=== PATIENT | female | born 1940 | race Caucasian/White ===

== ENCOUNTER 2018-06-13 05:47 | Outpatient (CLI) | payer MEDICARE ==
[~2018-06-13] VITALS: Ht 160 cm; Wt 64.9 kg
[~2018-06-13 05:47] MED LIST: ATEN-158 PO; ATEN25TA PO; CA C1TAB53 PO; CLOB15CR3 TP; EST45C VG; FEXO30TA17 PO; FLUT16SP22 NS; GLUC1TAB29 PO; HCT25T PO; HYDR12.56 PO; PANT20TA2 PO; POTA10CA43 PO; POTA20TA15 PO; VIT1CAPS45 PO
[2018-06-13] MEDS ORDERED: METO-333 PO (11:54)
[2018-06-13] MEDS ORDERED: POTA-51 PO (11:54)
[2018-06-13] MEDS ORDERED: FEXO-46 PO (11:54)
[2018-06-13] MEDS ORDERED: CLOB15CR3 VG (11:54)
[2018-06-13] MEDS ORDERED: CARB1DRO OP (11:54)
[2018-06-13] MEDS ORDERED: MEDR2.5T6 PO (11:54)
[2018-06-13] MEDS ORDERED: EST30C VG (11:54)
[2018-06-13] MEDS ORDERED: TRET20CR TP (11:54)
[2018-06-13] MEDS ORDERED: HYDR25TA4 PO (11:54)
[2018-06-13] MEDS ORDERED: PANT40TA3 PO (11:54)
== END 2018-06-13 12:17 | disposition home or self-care (01) ==
LOC: PREOP 05:47
PROVIDERS: ATTEND Podiatrist Foot Surgery
DX: Z01.818 Encounter for other preprocedural examination (principal)

== ENCOUNTER 2018-06-19 07:17 | Day surgery (SDC) | payer MEDICARE ==
[2018-06-19] VITALS (8 sets, daily range): BP systolic 125–152; BP diastolic 60–78
[~2018-06-19] VITALS: Ht 160 cm; Wt 64.9 kg
[~2018-06-19 07:17] MED LIST changes: +CARB1DRO OP; +CLOB15CR3 VG; +EST30C VG; +FEXO-46 PO; +HYDR25TA4 PO; +MEDR2.5T6 PO; +METO-333 PO; +PANT40TA3 PO; +POTA-51 PO; +TRET20CR TP
[2018-06-19] MEDS ORDERED: BUPIVACAINE 0.5% 30 ML (SENSORCAINE) VIAL ONE (07:52)
[2018-06-19] MEDS ORDERED: MEPIVACAINE (CARBOCAINE) 2% 50 ML VIAL ONE (07:52)
[2018-06-19] MEDS ORDERED: LACTATED RINGERS 1,000 ML IV PRN (08:07)
[2018-06-19] MEDS ORDERED: CATHETER FLUSH 10 ML SYR IV PRN (08:15)
[2018-06-19] MEDS ORDERED: LACTATED RINGERS 1,000 ML IV SCH (08:29)
--- NOTE | 2018-06-19 08:29 | Progress Note-Pre Operative ---
Pre-Operative Progress Note H&P Reviewed The H&P was reviewed, patient examined and no changes noted. Date Seen by Provider: June 19, 2018 Time Seen by Provider: 08:28 Date H&P Reviewed: June 19, 2018 Time H&P Reviewed: 08:29 Pre-Operative Diagnosis: hammered second digit right foot SHARRI LO DPJohn June 19, 2018 08:29
[2018-06-19] MEDS ORDERED: fentaNYL INJECTION 100 MCG/2 ML AMP ONE (08:43)
[2018-06-19] MEDS ORDERED: PROPOFOL INJECTION 50 ML IV ONE (08:43)
[2018-06-19] MEDS ORDERED: MIDAZOLAM 2 MG/2 ML (VERSED) VIAL ONE (08:44)
--- NOTE | 2018-06-19 09:44 | Progress Note-Post Operative ---
Post-Operative Progess Note Surgeon (s)/Medical Administrative Technician (s) Surgeon SHARRI LO DPM Medical Administrative Technician: none Pre-Operative Diagnosis hammered second digit right foot Post-Operative Diagnosis same Procedure & Operative Findings Date of Procedure 06/19/18 Procedure Performed/Findings correction of hammered second digit right foot Anesthesia Type regional with assist Estimated Blood Loss Estimated blood loss (mL): min Specimens/Packing Specimens Removed none Packing: none SHARRI LO DPM June 19, 2018 09:44
--- NOTE | 2018-06-19 09:46 | Discharge Instructions ---
Discharge Instructions Discharge Medications New, Converted or Re-Newed RX: RX Given to Pt/Family Patient Instructions Patient Instructions 1. Follow up in office in 2 weeks. 2. Diet as tolerated. 3. Activity as tolerated. Activity & Diet Activity as Tolerated: Yes SHARRI LO DPM June 19, 2018 09:46
[2018-06-19] MEDS ORDERED: TRAM50TA2 PO (09:52)
[2018-06-19] MEDS ORDERED: VANCOMYCIN INJECTION 1,000 MG in NS (IVPB) 250 ML IV ONE (12:00)
--- NOTE | 2018-06-19 12:18 | Anesthesia-General Post-Op ---
MAC Patient Condition Mental Status/LOC: Same as Preop Cardiovascular: Satisfactory Nausea/Vomiting: Absent Respiratory: Satisfactory Pain: Controlled Complications: Absent Post Op Complications Complications None Follow Up Care/Instructions Patient Instructions None needed. Anesthesiology Discharge Order Discharge Order Patient is doing well, no complaints, stable vital signs, no apparent adverse anesthesia problems. No complications reported per nursing. SHEILA MESA CRNA June 19, 2018 12:18
--- NOTE | 2018-06-19 13:57 | Diagnostic Imaging Report ---
EXAMINATION: Portable right foot at 10:09 a.m. INDICATION: Postop. FINDINGS: AP and cross-table lateral views were obtained. The prior right foot exam of 06/06/2014 noted a K-wire fixation device longitudinally traversing the phalanges of the second digit. In the interval since the previous exam, the orthopedic fixation wire has been removed. The middle and proximal phalanx of the second digit do seem to be fused. There is no fracture or acute bony abnormality noted. This exam is somewhat limited in the evaluation for a small fracture as the patient's foot is partially obscured by external dressing. The postsurgical changes involving the medial aspect of the head of the first metatarsal seen on the prior study are again evident and unchanged. There is no sign of a radiopaque foreign body. IMPRESSION: 1. There is no evidence for an acute bony abnormality. 2. The orthopedic fixation screw traversing the phalanges of the second digit seen previously has been removed. Dictated by: Dictated on workstation # [id number]
--- NOTE | 2018-06-21 09:58 | OPERATIVE REPORT ---
DATE OF SERVICE: 06/19/2018 PREOPERATIVE DIAGNOSES: Deviated second digit, right. Hammertoe, second digit, right. Exostosis, second digit, right. POSTOPERATIVE DIAGNOSES: Deviated second digit, right. Hammertoe, second digit, right. Exostosis, second digit, right. NAME OF OPERATION: Correction of hammertoe 2nd digit, right foot. DESCRIPTION OF PROCEDURE: With the patient in supine position, having been affected by a local anesthetic utilizing 3 mL of 50:50 mixture of 0.5% Marcaine plain and 1% Carbocaine plain with anesthesia assist. Sterile prep and drape were performed and a Manson drain was applied to the base of the second digit. A 2 cm linear incision was made over the dorsal medial aspect of the second digit, deepened with sharp and blunt dissection. Vital structures identified and retracted. Dissection was carried deep to the PIPJ, which had been fused previously from an earlier surgery. Capsule and periosteum were freed from the dorsal and medial aspect of the proximal phalangeal head. It was noted that there was enlargement at this point and this was resected in toto with the remaining bone surface rasped smooth. The area was flushed with copious amounts of saline. The skin and superficial fascia were reapproximated with continuous lock suture of 4-0 Prolene. The Oliva was released. Blood flow returned to the digits was within normal limits. Wet to dry Betadine-soaked dressing was applied to the mid tarsus covered with circular Coban. The patient tolerated the procedure well with minimal blood loss, left the OR to PAR in apparent good condition. She was given Rx for tramadol 50 mg t.i.d. x5 days, is to be seen in the office in 2 weeks for appropriate followup postoperative care. Job ID: [id number] DocumentID: [id number] Dictated Date: 06/19/2018 10:19:58 Huc Date: 06/19/2018 15:05:00 Dictated By: SHARRI LO DPM
== END 2018-06-19 11:20 | disposition home or self-care (01) ==
LOC: SDC 07:17
PROVIDERS: ATTEND Podiatrist Foot Surgery
DX: M20.41 Other hammer toe(s) (acquired), right foot (principal); M89.9 Disorder of bone, unspecified; I10 Essential (primary) hypertension; K21.9 Gastro-esophageal reflux disease without esophagitis; E53.8 Deficiency of other specified B group vitamins; M19.91 Primary osteoarthritis, unspecified site; J30.9 Allergic rhinitis, unspecified; Z79.899 Other long term (current) drug therapy
CPT/HCPCS: 73620; 87081

== ENCOUNTER → 2020-12-18 | Outpatient (CLI) | payer MEDICARE ==
[~2020-12-18] MED LIST changes: -PANT40TA3 PO; +PANT40TA52 PO; +TRM50T PO
--- NOTE | 2020-12-18 12:43 | Diagnostic Imaging Report ---
INDICATION: Routine screening. COMPARISON is made with prior mammograms from 12/13/2019 and 12/11/2018. 2-D and 3-D bilateral screening mammography was performed with CAD. Both breasts are heterogeneously dense, limiting the sensitivity of mammography. There are scattered benign calcifications throughout both breasts. No mass or malignant-appearing microcalcifications are seen. Axillae are unremarkable. IMPRESSION: BI-RADS Category 2 No mammographic features suspicious for malignancy are identified. ACR BI-RADS Category 2: Benign findings. Result letter will be mailed to the patient. Note: At least 10% of breast cancer is not imaged by mammography. Dictated by: Dictated on workstation # [id number]
== END ==
LOC: RAD 10:20
PROVIDERS: ATTEND Obstetrics & Gynecology
DX: Z12.31 Encounter for screening mammogram for malignant neoplasm of breast (principal)
CPT/HCPCS: 77063; 77067

== ENCOUNTER → 2021-12-20 | Outpatient (CLI) | payer MEDICARE ==
[~2021-12-20] MED LIST changes: -FEXO-46 PO; +NF-ALLE180 PO
--- NOTE | 2021-12-20 20:00 | Diagnostic Imaging Report ---
EXAM: 3D bilateral screening mammogram. The current study was also evaluated with a Computer Aided Detection (CAD) system. COMPARISONS: 12/18/2020, 12/13/2019 and 12/11/2018. There are no current complaints. FINDINGS: The fibroglandular tissue in both breasts is dense. This does limit the sensitivity of this exam. Overall, there does not appear to have been any significant change when compared to the prior study. No primary or secondary sign of malignancy is noted. IMPRESSION: There is no radiographic evidence for malignancy. ACR BI-RADS Category 1: Negative. Result letter will be mailed to the patient. Note: At least 10% of breast cancer is not imaged by mammography. Dictated by: Dictated on workstation # [id number]
== END ==
LOC: RAD 09:04
PROVIDERS: ATTEND Obstetrics & Gynecology
DX: Z12.31 Encounter for screening mammogram for malignant neoplasm of breast (principal)
CPT/HCPCS: 77063; 77067

== ENCOUNTER → 2022-12-21 | Outpatient (CLI) | payer MEDICARE ==
[~2022-12-21] MED LIST changes: +POTA-330 PO; -POTA-51 PO
--- NOTE | 2022-12-21 22:21 | Diagnostic Imaging Report ---
INDICATION: Routine screening. Comparison is made with prior mammogram from 12/20/2021 and 12/18/2020. 2-D and 3-D bilateral screening mammography was performed with CAD. Both breasts are heterogeneously dense, limiting the sensitivity of mammography. Benign calcifications are scattered throughout both breasts. No dominant mass or malignant-appearing microcalcifications are identified. The axillae are unremarkable. IMPRESSION: No mammographic features suspicious for malignancy are identified. ACR BI-RADS Category 2: Benign findings. Result letter will be mailed to the patient. Note: At least 10% of breast cancer is not imaged by mammography. BI-RADS Category 2 Dictated on workstation # [id number]
== END ==
LOC: RAD 14:33
PROVIDERS: ATTEND Obstetrics & Gynecology
DX: Z12.31 Encounter for screening mammogram for malignant neoplasm of breast (principal)
CPT/HCPCS: 77063; 77067